=== PATIENT | female | born 1945 | race Caucasian/White ===

== ENCOUNTER → 2020-07-22 | Outpatient (CLI) | payer MEDICARE, OTHER ==
--- NOTE | 2020-07-22 15:46 | Pulmonary Function Test ---
Pulmonary Function Test Date of Procedure:: 07/22/20 INDICATION:: Dyspnea Referring Provider: Dr. Francesco Longoria Insurance Claims Adjuster: Linnette Ross, ORDER CHECKER PACKER PROCESSER - Report Spirometry: Spirometry: pre-FVC: 2.16 L 85% post-FVC: 2.28 L 90% pre-FEV:1 1.07 L 57% post-FEV1: 1.06 L 56% pre-FEV1/FVC %: 49 post-FEV1/FVC%: 46 predicted: 81 [id number]%: 0.34 L 21% [id number]%: 0.34 L 21% Impression: Severe obstructive ventilatory defect. Insignificant response to bronchodilator therapy. This does not preclude a clinical trial of bronchodilator therapy.
== END ==
LOC: RT 11:42
PROVIDERS: ATTEND Internal Medicine
DX: J44.9 Chronic obstructive pulmonary disease, unspecified (principal)
CPT/HCPCS: 94060